=== PATIENT | female | born 1950 | race African-American/Black ===

== ENCOUNTER 2018-12-08 10:16 | Outpatient (CLI) | payer OTHER ==
[~2018-12-08 10:16] MED LIST: NORVASC5 MG; NORVASC5 MG PO
== END 2018-12-08 10:22 | disposition home or self-care (01) ==
LOC: LAB 10:16
DX: D49.7 Neoplasm of unspecified behavior of endocrine glands and other parts of nervous system (principal); Z51.81 Encounter for therapeutic drug level monitoring

== ENCOUNTER → 2018-12-30 | Outpatient (CLI) | payer OTHER | END | disposition home or self-care (01) | LOC: MRI 12-29 08:15 | DX: D49.7 Neoplasm of unspecified behavior of endocrine glands and other parts of nervous system (principal); E27.8 Other specified disorders of adrenal gland | CPT/HCPCS: 74183 ==